=== PATIENT | male | born 1980 | race Caucasian/White ===

== ENCOUNTER 2016-08-08 13:40 | Emergency (ER) | payer BC, OTHER, SELFPAY ==
--- NOTE | 2016-08-08 14:12 | ERRECORD ---
[facility] EMERGENCY RECORD HPI NAUSEA/VOMITING/DIARRHEA (14:01 [facility]) CHIEF COMPLAINT: Patient presents for evaluation of diarrhea. HISTORIAN: History provided by patient, 35M presents with complaints of diarrhea for the past two days, associated with nausea without vomiting. Denies abdominal pain, fever, chills, urinary complaints, or back pain. Denies travel. ASSOCIATED WITH MALE: Associated with diarrhea, Associated with nausea. ROS (14:03 [facility]) CONSTITUTIONAL: Negative constitutional review of systems, Historian denies chills, denies fever. EYES: Negative eye review of systems, Historian denies eye pain, denies eye discharge, denies vision changes. ENT: Negative ears, nose, throat review of systems, Historian denies rhinorrhea, denies sore throat. CARDIOVASCULAR: Negative cardiovascular review of systems, Historian denies chest pain, denies palpitations. RESPIRATORY: Negative respiratory review of systems, Historian denies cough, denies shortness of breath. GI: Historian reports diarrhea, reports nausea. GENITOURINARY MALE: Negative genitourinary review of systems, Historian denies dysuria, denies hematuria. MUSCULOSKELETAL: Negative musculoskeletal review of systems, Historian denies back pain, denies fall, denies injury, denies neck pain. SKIN: Negative skin review of systems, Historian denies rash, denies skin changes. NEUROLOGIC: Negative neurologic review of systems, Historian denies headache. HEMO/LYMPHATIC: Normal hematologic/lymphatic system review, Historian denies abnormal blood clotting. PAST MEDICAL HISTORY (13:47 [facility]) MEDICAL HISTORY: No past medical history. MALE SURGICAL HISTORY: Patient has no surgical history. PSYCHIATRIC HISTORY: No previous psychiatric history. SOCIAL HISTORY: Patient drinks socially, twice a month, Patient denies drug use, Patient currently uses tobacco, smokes cigarettes, Patient smokes 1 pack per day. KNOWN ALLERGIES ALLERGIES: (Unconfirmed) FOOD ALLERGIES: (Unconfirmed) LATEX ALLERGY? (Unconfirmed) No Known Allergies (Unconfirmed) No Known Drug Allergies CURRENT MEDICATIONS (13:45 [facility]) &a-1R&a+25V*p+0X*l6602O*c202B*c15G*c2P*p-0X&a-25V&a+1R Name: Andrae Angeles : 1980 M35 MedRec: [id number] AcctNum: [id number] Prepared: ThuAug 08, 2016 14:16 by Interface Page 1 of 3 D [facility] EMERGENCY RECORD None VITAL SIGNS (13:45 [facility]) VITAL SIGNS: BP: 138/89, Pulse: 83, Resp: 18, Temp: 98.9 (Oral), Pain: 0, O2 sat: 96 on Room Air, Time: 08/08/2016 13:45. PHYSICAL EXAM (14:03 [facility]) CONSTITUTIONAL: Vital signs reviewed, Patient afebrile, Pulse normal, Blood pressure normal, Respiratory rate normal, Patient appears non toxic, Patient appears pain free, Patient alert and oriented to person, place and time. HEAD: Head exam normal, Head exam included findings of head atraumatic, normocephalic. EYES: Eye exam normal, Eye exam included findings of eyelids normal to inspection, Pupils equally round and reactive to light, Extraocular muscles intact, no nystagmus. ENT: ENT exam normal, Ear exam normal, external ear normal, tympanic membranes normal, no bleeding, Pharynx exam normal, Uvula exam normal, Tonsil exam normal, Mouth exam normal, mucous membranes moist, teeth normal. NECK: Neck exam normal, Neck exam included findings of normal range of motion, Trachea midline, no meningeal signs, no cervical adenopathy, no tenderness. RESPIRATORY CHEST: Respiratory and chest exam normal, Respiratory exam included findings of no respiratory distress, Breath sounds clear. CARDIOVASCULAR: Cardiovascular assessment normal, Cardiovascular exam included findings of heart rate regular rate and rhythm, Heart sounds normal. ABDOMEN MALE: Abdominal exam included findings of abdomen nontender, Bowel sounds normal, no distension, no mass, no pulsatile masses, no peritoneal signs, no rigidity, no guarding, no rebound, Rovsing's sign absent. BACK: Back exam normal, Back exam included findings of normal inspection, range of motion normal, no tenderness. UPPER EXTREMITY: Upper extremity exam normal, Upper extremity exam included findings of inspection normal, Range of motion normal, Motor strength normal, Sensation intact, Radial pulse normal. LOWER EXTREMITY: Lower extremity exam normal, Lower extremity exam included findings of inspection normal, Range of motion normal, Motor strength normal, Sensation intact, Posterior tibial pulse normal, Pedal pulse normal. NEURO: Neuro exam normal, Neuro exam findings include patient oriented to person, place and time, Speech normal, Gait normal. SKIN: Skin exam normal, Skin exam included findings of skin warm, dry, and normal in color, no rash. PSYCHIATRIC: Psychiatric exam normal, Normal affect. DOCTOR NOTES (14:04 [facility]) TEXT: patient presented with diarrhea with associated &a-1R&a+25V*p+0X*c8901V*c202B*c15G*c2P*p-0X&a-25V&a+1R Name: Andrae Angeles : 1980 5 MedRec: [id number] AcctNum: [id number] Prepared: ThuAug 08, 2016 14:16 by Interface Page 2 of 3 pMD [facility] EMERGENCY RECORD nausea, but without other concerning findings. Well appearing, non toxic, no concern for intraabdominal process such as appendicitis, obstruction, or cholecystitis. Appropriate for outpatient management and follow up. PATIENT STATUS: Patient's status is unchanged since arrival to emergency department. PATIENT PLAN: The patient will be discharged. PROBLEM LIST No recorded problems DIAGNOSIS (13:59 [facility]) FINAL: PRIMARY: diarrhea. PRESCRIPTION (13:59 [facility]) Zofran ODT: TABLET, RAPID DISSOLVE : 4 mg : ORAL : Quantity: 4 Unit: mg Route: ORAL Schedule: every 8 hours PRN Dispense: 6 May substitute. Refills: No Refills . NOTES: Take as needed for nausea or vomiting. One refill authorized No refills. DISPOSITION PATIENT: Disposition Type: Discharge, Disposition: *Discharge Home. (13:59 [facility]) Patient left the department. (14:10 [facility]) Franks: KISHORE=ELZBIETA Jones, October [facility]=JANAY Garcia, [place] [facility]=MD Lizette, David &a-1R&a+25V*p+0X*z6521O*c202B*c15G*c2P*p-0X&a-25V&a+1R Name: Andrae Angeles : 1980 5 MedRec: [id number] AcctNum: [id number] Prepared: Fri Aug 08, 2016 14:16 by Interface Page 3 of 3 pMD MTDD
--- NOTE | 2016-08-08 14:18 | PICIS ---
[facility] EMERGENCY RECORD TRIAGE (ThuAug 08, 2016 13:44 [facility]) TRIAGE NOTES: PT REPORTS DIARRHEA X 2 DAYS. (ThuAug 08, 2016 13:44 [facility]) PATIENT: NAME: Andrae Angeles, AGE: 35, GENDER: male, : Thu1980, TIME OF GREET: ThuAug 08, 2016 13:40, PREFERRED LANGUAGE: German, ETHNICITY: Not or , ECODE BILLING MAP: [facility], SSN: [id number], Zip Code: [address], KG WEIGHT: 68.04, PHONE: , , , PERSON ID: [id number], PAYMENT: EBER Hdz, PCP: NONE. (ThuAug 08, 2016 13:44 [facility]) COMPLAINT: DIARRHEA. (ThuAug 08, 2016 13:44 [facility]) ADMISSION: URGENCY: 4 Non Urgent, ADMISSION SOURCE: Home, TRANSPORT: CAR, BED: ER -05. (ThuAug 08, 2016 13:44 [facility]) ASSESSMENT: Assessment: PT AMBUTLATORY TO ER TRIAGE. PT REPORTS DIARRHEA X 2 DAYS, Symptoms began 2 DAYS. (13:47 [facility]) PAIN: No complaint of pain. (13:47 [facility]) SIRS SCORING: Heart Rate 55-109 (0), Temp range 96.8-101.1 (0), respiratory rate 12-24 (0), Mental Status altered: no (0), Infection or Suspected Infection: No. (13:47 [facility]) TRIAGE SCREENING: Patient denies suicidal ideation, Patient denies presence of domestic violence. (13:47 [facility]) PROVIDERS: TRIAGE NURSE: Vinita Garcia RN. (ThuAug 08, 2016 13:44 [facility]) VITAL SIGNS: BP 138/89, Pulse 83, Resp 18, Temp 98.9, (Oral), Pain 0, O2 Sat 96, on Room Air, Time 08/08/2016 13:45. (13:45 [facility]) PREVIOUS VISIT ALLERGIES: No Known Drug Allergies. (ThuAug 08, 2016 13:44 [facility]) No Known Drug Allergies. (13:47 [facility]) KNOWN ALLERGIES ALLERGIES: (Unconfirmed) FOOD ALLERGIES: (Unconfirmed) LATEX ALLERGY? (Unconfirmed) No Known Allergies (Unconfirmed) No Known Drug Allergies CURRENT MEDICATIONS (13:45 [facility]) None VITAL SIGNS (13:45 [facility]) VITAL SIGNS: BP: 138/89, Pulse: 83, Resp: 18, Temp: 98.9 (Oral), Pain: 0, O2 sat: 96 on Room Air, Time: 08/08/2016 13:45. NURSING ASSESSMENT: ABDOMEN (13:53 [facility]) CONSTITUTIONAL: Patient arrives ambulatory, Gait steady, History obtained from patient, Patient appears comfortable, Patient cooperative, Patient alert, Oriented to person, place and time, Skin warm, Skin dry, Skin normal in color, Mucous membranes pink, Mucous membranes moist. ABDOMEN: Abdomen assessment findings include abdomen symmetrical, &a-1R&a+25V*p+0X*b8643H*c202B*c15G*c2P*p-0X&a-25V&a+1R Name: Andrae Angeles : 1980 M35 MedRec: [id number] AcctNum: [id number] Prepared: ThuAug 08, 2016 14:23 by Interface Page 1 of 4 pMD [facility] EMERGENCY RECORD Abdomen soft, non-tender, Associated with nausea, no associated vomiting, Associated with diarrhea, Number of episodes: 10, 10 episodes in 24 hours. GENITOURINARY MALE: no associated urinary complaints. SAFETY: Side rails up, Cart/Stretcher in lowest position, Call light within reach, Hospital ID band on. NURSING PROCEDURE: DISCHARGE NOTE (14:05 [facility]) DISCHARGE: Patient discharged to home, ambulating without assistance, driving self, unaccompanied, Summary of Care printed/ provided, Transition record given to patient, Prescriptions given and instructions on side effects given, Above person(s) verbalized understanding of discharge instructions and follow-up care, Patient treated and evaluated by physician. HPI NAUSEA/VOMITING/DIARRHEA (14:01 [facility]) CHIEF COMPLAINT: Patient presents for evaluation of diarrhea. HISTORIAN: History provided by patient, 35M presents with complaints of diarrhea for the past two days, associated with nausea without vomiting. Denies abdominal pain, fever, chills, urinary complaints, or back pain. Denies travel. ASSOCIATED WITH MALE: Associated with diarrhea, Associated with nausea. ROS (14:03 [facility]) CONSTITUTIONAL: Negative constitutional review of systems, Historian denies chills, denies fever. EYES: Negative eye review of systems, Historian denies eye pain, denies eye discharge, denies vision changes. ENT: Negative ears, nose, throat review of systems, Historian denies rhinorrhea, denies sore throat. CARDIOVASCULAR: Negative cardiovascular review of systems, Historian denies chest pain, denies palpitations. RESPIRATORY: Negative respiratory review of systems, Historian denies cough, denies shortness of breath. GI: Historian reports diarrhea, reports nausea. GENITOURINARY MALE: Negative genitourinary review of systems, Historian denies dysuria, denies hematuria. MUSCULOSKELETAL: Negative musculoskeletal review of systems, Historian denies back pain, denies fall, denies injury, denies neck pain. SKIN: Negative skin review of systems, Historian denies rash, denies skin changes. NEUROLOGIC: Negative neurologic review of systems, Historian denies headache. HEMO/LYMPHATIC: Normal hematologic/lymphatic system review, Historian denies abnormal blood clotting. PAST MEDICAL HISTORY (13:47 [facility]) &a-1R&a+25V*p+0X*h4539P*c202B*c15G*c2P*p-0X&a-25V&a+1R Name: Andrae Angeles : 1980 M35 MedRec: [id number] AcctNum: [id number] Prepared: ThuAug 08, 2016 14:23 by Interface Page 2 of 4 D [facility] EMERGENCY RECORD MEDICAL HISTORY: No past medical history. MALE SURGICAL HISTORY: Patient has no surgical history. PSYCHIATRIC HISTORY: No previous psychiatric history. SOCIAL HISTORY: Patient drinks socially, twice a month, Patient denies drug use, Patient currently uses tobacco, smokes cigarettes, Patient smokes 1 pack per day. PHYSICAL EXAM (14:03 [facility]) CONSTITUTIONAL: Vital signs reviewed, Patient afebrile, Pulse normal, Blood pressure normal, Respiratory rate normal, Patient appears non toxic, Patient appears pain free, Patient alert and oriented to person, place and time. HEAD: Head exam normal, Head exam included findings of head atraumatic, normocephalic. EYES: Eye exam normal, Eye exam included findings of eyelids normal to inspection, Pupils equally round and reactive to light, Extraocular muscles intact, no nystagmus. ENT: ENT exam normal, Ear exam normal, external ear normal, tympanic membranes normal, no bleeding, Pharynx exam normal, Uvula exam normal, Tonsil exam normal, Mouth exam normal, mucous membranes moist, teeth normal. NECK: Neck exam normal, Neck exam included findings of normal range of motion, Trachea midline, no meningeal signs, no cervical adenopathy, no tenderness. RESPIRATORY CHEST: Respiratory and chest exam normal, Respiratory exam included findings of no respiratory distress, Breath sounds clear. CARDIOVASCULAR: Cardiovascular assessment normal, Cardiovascular exam included findings of heart rate regular rate and rhythm, Heart sounds normal. ABDOMEN MALE: Abdominal exam included findings of abdomen nontender, Bowel sounds normal, no distension, no mass, no pulsatile masses, no peritoneal signs, no rigidity, no guarding, no rebound, Rovsing's sign absent. BACK: Back exam normal, Back exam included findings of normal inspection, range of motion normal, no tenderness. UPPER EXTREMITY: Upper extremity exam normal, Upper extremity exam included findings of inspection normal, Range of motion normal, Motor strength normal, Sensation intact, Radial pulse normal. LOWER EXTREMITY: Lower extremity exam normal, Lower extremity exam included findings of inspection normal, Range of motion normal, Motor strength normal, Sensation intact, Posterior tibial pulse normal, Pedal pulse normal. NEURO: Neuro exam normal, Neuro exam findings include patient oriented to person, place and time, Speech normal, Gait normal. SKIN: Skin exam normal, Skin exam included findings of skin warm, dry, and normal in color, no rash. PSYCHIATRIC: Psychiatric exam normal, Normal affect. EVENTS &a-1R&a+25V*p+0X*d1839G*c202B*c15G*c2P*p-0X&a-25V&a+1R Name: Andrae Angeles : 1980 M35 MedRec: [id number] AcctNum: [id number] Prepared: ThuAug 08, 2016 14:23 by Interface Page 3 of 4 pMD [facility] EMERGENCY RECORD TRANSFER: Triage to Emergency Emergency Room -05. (13:44 [facility]) Removed from Emergency Emergency Room -05. (14:10 [facility]) DOCTOR NOTES (14:04 [facility] TEXT: patient presented with diarrhea with associated nausea, but without other concerning findings. Well appearing, non toxic, no concern for intraabdominal process such as appendicitis, obstruction, or cholecystitis. Appropriate for outpatient management and follow up. PATIENT STATUS: Patient's status is unchanged since arrival to emergency department. PATIENT PLAN: The patient will be discharged. PROBLEM LIST No recorded problems DIAGNOSIS (13:59 [facility]) FINAL: PRIMARY: diarrhea. DISPOSITION PATIENT: Disposition Type: Discharge, Disposition: *Discharge Home. (13:59 [facility]) Patient left the department. (14:10 [facility]) INSTRUCTION (14:00 [facility]) DISCHARGE: DIARRHEA, VIRAL (6Y-ADULT). SPECIAL: drink lots of fluids, return to the ED if you develop worsening abdominal pain. PRESCRIPTION (13:59 [facility]) Zofran ODT: TABLET, RAPID DISSOLVE : 4 mg : ORAL : Quantity: 4 Unit: mg Route: ORAL Schedule: every 8 hours PRN Dispense: 6 May substitute. Refills: No Refills . NOTES: Take as needed for nausea or vomiting. One refill authorized No refills. IMAGING WORK/SCHOOL RELEASE: Image captured from scanner. (14:04 [facility]) *DISCHARGE INSTRUCTIONS RECEIPT: Image captured from scanner. (14:09 [facility]) *SUPPLY CHARGE SHEET: Image captured from scanner. (14:09 [facility]) ADMIN (14:05 [facility]) DIGITAL SIGNATURE: MD Bauer Jason. Franks: [facility]=ELZBIETA Jones, October [facility]=JANAY Garcia, [facility]=MD Bauer Jason &a-1R&a+25V*p+0X*x5777H*c202B*c15G*c2P*p-0X&a-25V&a+1R Name: Andrae Angeles : 1980 M35 MedRec: [id number] AcctNum: [id number] Prepared: ThuAug 08, 2016 14:23 by Interface Page 4 of 4 pMD MTDD
== END 2016-08-08 14:05 | disposition home or self-care (01) ==
LOC: BURERS 13:40
DX: R19.7 Diarrhea, unspecified (principal); F17.210 Nicotine dependence, cigarettes, uncomplicated
CPT/HCPCS: 99283